=== PATIENT | female | born 1960 ===

== ENCOUNTER 2016-03-10 09:30 | Emergency (ER) | payer BC, MEDICAID ==
[2016-03-10 09:37] VITALS: BP 123/81; PULSE 68; RESP 20; TEMP 98.1
[2016-03-10 09:58] VITALS: O2SAT 98
--- NOTE | 2016-03-10 10:16 | ED PDOC ---
HPI: Neurologic - General Chief Complaint (Provider): vertigo Source: patient Exam Limitations: no limitations - History of Present Illness Timing/Duration: episodic, other (3 days) Episode Description: worse with sleeping/pressure on left side of head Associated Symptoms: ringing in ears. denies: fever/chills, nausea/vomiting, trouble walking, vision changes Additional Complaint(s): 56yo F with PMHx hyperlipidemia, hypothyroidism c/o vertigo x3 days. triggered by sleeping on left side of head, intermittent, improved immediately by changing position. a/w tinnitus x1 month. Denies fever, chills, Headache, chest pain, dyspnea. Denies falls, vision change. Has recent back surgery and using percocet/flexeril for back pain. <Muna Reyes - Last Filed: 03/10/16 11:06> <Riya Brown - Last Filed: 03/10/16 12:01> - General Time Seen by Provider: 03/10/16 09:47 Chief Complaint (Nursing): Dizziness/Lightheaded - History of Present Illness Allergies/Adverse Reactions: Allergies No Known Allergies Allergy (Verified 05/04/14 11:03) Home Medications: Ambulatory Orders Levothyroxine Sodium [Synthroid] 0.1 mg PO HS 05/04/14 Liothyronine [Cytomel] 5 mcg PO HS 05/04/14 Alprazolam [Xanax] 0.5 mg PO Q12 PRN #0 tab 05/05/14 Aspirin [Ecotrin] 325 mg PO DAILY #0 ect 05/05/14 Rosuvastatin Calcium [Crestor] 10 mg PO HS #0 tab 05/05/14 Supervising Attending Note - Supervising Attending Note The Documented history was done by the: Physician Abe Teacher, Attending Physician The documented physical exam was done by the: Physician Abe Teacher, Attending Physician The documented procedures were done by the: Physician Abe Teacher, Attending Physician - Attestation: I have personally seen and examined this patient.: Yes I have fully participated in the care of the patient.: Yes I have reviewed all pertinent clinical information, including history, physical exam and plan: Yes <Riya Brown - Last Filed: 03/10/16 12:01> Past Medical History Vital Signs: Last Vital Signs Temp 98.1 F 03/10/16 09:35 Pulse 68 03/10/16 09:35 Resp 20 03/10/16 09:35 BP 123/81 03/10/16 09:35 Pulse Ox 98 03/10/16 09:56 - Medical History PMH: Anxiety, Deep Vein Thrombosis (in ), Hypercholesterolemia (not taking meds currently.), Hyperthyroidism, Hypothyroidism Denies: HIV - Surgical History Surgical History: Back Surgery (L/S fusion) - Family History Family History: States: Unknown Family Hx <Muna Reyes - Last Filed: 03/10/16 11:06> Vital Signs: Last Vital Signs Temp 98.1 F 03/10/16 09:35 Pulse 68 03/10/16 09:35 Resp 20 03/10/16 09:35 BP 123/81 03/10/16 09:35 Pulse Ox 98 03/10/16 11:17 <Riya Brown - Last Filed: 03/10/16 12:01> - Home Medications Home Medications: Ambulatory Orders Medication Instructions Recorded Levothyroxine Sodium [Synthroid] 0.1 mg PO HS 05/04/14 Liothyronine [Cytomel] 5 mcg PO HS 05/04/14 Alprazolam [Xanax] 0.5 mg PO Q12 PRN #0 tab 05/05/14 Aspirin [Ecotrin] 325 mg PO DAILY #0 ect 05/05/14 Rosuvastatin Calcium [Crestor] 10 mg PO HS #0 tab 05/05/14 - Allergies Allergies/Adverse Reactions: Allergies Allergy/AdvReac Type Severity Reaction Status Date / Time No Known Allergies Allergy Verified 05/04/14 11:03 Review of Systems Constitutional: Negative for: Fever, Chills ENT: Positive for: Other (tinnitus) Cardiovascular: Negative for: Chest Pain Respiratory: Negative for: Shortness of Breath Gastrointestinal: Negative for: Nausea, Vomiting, Abdominal Pain, Diarrhea Musculoskeletal: Positive for: Back Pain (recent surgery) Neurological: Positive for: Other (vertigo) <Muna Reyes - Last Filed: 03/10/16 11:06> Physical Exam - Reviewed Vital Signs Reviewed: Yes (VSS) - Physical Exam Appears: Positive for: No Acute Distress Head Exam: Positive for: ATRAUMATIC Skin: Positive for: Warm, Dry Eye Exam: Positive for: Normal appearance, EOMI, PERRL ENT: Positive for: Other (Not able to perform Shea Halpike Maneuver d/t back pain ). 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 Negative for: Motor/Sensory Deficits, Facial Droop <Muna Reyes - Last Filed: 03/10/16 11:06> - Laboratory Results Result Diagrams: 03/10/16 10:00 03/10/16 10:00 - ECG ECG: Positive for: Interpreted By Me ECG Rhythm: Positive for: Sinus Rhythm O2 Sat by Pulse Oximetry: 98 - Progress Re-evaluation Time: 11:15 Condition: Improved <Muna Reyes - Last Filed: 03/10/16 11:06> - Laboratory Results Result Diagrams: 03/10/16 10:00 03/10/16 10:00 <Riya Brown A - Last Filed: 03/10/16 12:01> Medical Decision Making Medical Decision Making: DDx peripheral v central vertigo, tumor/schwanomma, Menierre's disease likely peripheral vertigo given symptoms/exam and a/w tinnitus CT head to r/o other causes meclizine PO reevaluation CT head no acute changes no further vertigo ambulating with no dizziness, lightheadedness d/c with Meclizine and ENT referral <Muna Reyes - Last Filed: 03/10/16 11:06> Disposition - Patient ED Disposition Is Patient to be Admitted: No - Disposition Disposition: Routine/Home Disposition Time: 11:16 <EricMuna - Last Filed: 03/10/16 11:06> - Patient ED Disposition Is Patient to be Admitted: No Doctor Will See Patient In The: Office Counseled Patient/Family Regarding: Studies Performed, Diagnosis, Need For Followup - Disposition Disposition: Routine/Home Disposition Time: 12:00 <Riya Brown A - Last Filed: 03/10/16 12:01> - Clinical Impression Clinical Impression: BPPV (benign paroxysmal positional vertigo) - Disposition Referrals: Scott Rose MD [Staff Provider] - Condition: STABLE Additional Instructions: ENT follow up if symptoms continue within 1week. Return for worsening. Avoid the position that provokes your symptoms. Instructions: Benign Paroxysmal Positional Vertigo (ED)
[2016-03-10 10:36] LABS: BASO # 0.1 K/uL (0.0-0.2); BASO % 1.3 % (0.0-2.0); EOS # 0.1 K/uL (0.0-0.7); EOS % 1.6 % (0.0-4.0); HEMATOCRIT 33.5 % (34.0-47.0); LYMPH # 2.3 K/uL (1.0-4.3); LYMPH % 31.3 % (20.0-40.0); MEAN CELL VOLUME 86.1 fl (81.0-99.0); MEAN CORPUSCULAR HEMOGLOBIN 28.5 pg (27.0-31.0); MEAN CORPUSCULAR HGB CONC 33.1 g/dL (33.0-37.0); MEAN PLATELET VOLUME 7.5 fl (7.2-11.7); MONO # 0.4 K/uL (0.0-0.8); MONO % 4.9 % (0.0-10.0); NEUT # 4.5 K/uL (1.8-7.0); NEUT % 60.9 % (50.0-75.0); RED CELL DISTRIBUTION WIDTH 14.2 % (11.5-14.5); WHITE BLOOD COUNT 7.3 K/uL (4.8-10.8)
--- NOTE | 2016-03-10 10:58 | CT ---
PROCEDURE: CT HEAD WITHOUT CONTRAST. HISTORY: vertigo COMPARISON: None available. TECHNIQUE: Axial computed tomography images were obtained through the head/brain without intravenous contrast. Radiation dose: Total exam DLP = 863.9 mGy-cm. FINDINGS: HEMORRHAGE: No intracranial hemorrhage. BRAIN: No mass effect or edema. No atrophy or chronic microvascular ischemic changes. VENTRICLES: Unremarkable. No hydrocephalus. CALVARIUM: Unremarkable. PARANASAL SINUSES: Unremarkable as visualized. No significant inflammatory changes. MASTOID AIR CELLS: Unremarkable as visualized. No inflammatory changes. OTHER FINDINGS: None. IMPRESSION: No evidence of acute intracranial hemorrhage territorial infarct mass effect or midline shift.
[2016-03-10 11:03] LABS: ALB/GLOB RATIO 1.1 (1.0-2.1); ALKALINE PHOSPHATASE 119 U/L (38-126); ALT/SGPT 26 U/L (9-52); AST/SGOT 37 U/L (14-36); BILIRUBIN,TOTAL 0.4 mg/dl (0.2-1.3); BLOOD UREA NITROGEN 20 mg/dl (7-17); CALCIUM 9.7 mg/dL (8.4-10.2); CARBON DIOXIDE 28 mmol/L (22-30); CHLORIDE 102 mmol/L (98-107); GFR AFRICAN-AMERICAN > 60; GLUCOSE,RANDOM 111 mg/dL (65-105); POTASSIUM 4.5 MMOL/L (3.6-5.0); SODIUM 142 mmol/l (132-148)
--- NOTE | 2016-03-10 16:19 | CARD ---
APPROVED REPORT EKG Measurement Heart [id number] <Conclusion> Normal sinus rhythm Low voltage QRS Borderline ECG
== END 2016-03-10 12:11 | disposition home or self-care (01) ==
LOC: H.ER 09:30
DX: H81.10 Benign paroxysmal vertigo, unspecified ear (principal); E03.9 Hypothyroidism, unspecified; E78.00 Pure hypercholesterolemia, unspecified; Z86.718 Personal history of other venous thrombosis and embolism

== ENCOUNTER 2016-08-23 15:51 | Emergency (ER) | payer MEDICAID ==
[2016-08-23 16:04] VITALS: TEMP 98.3
--- NOTE | 2016-08-23 17:10 | ED PDOC ---
HPI: Chest Pain Time Seen by Provider: 08/23/16 16:27 Chief Complaint (Nursing): Chest Pain Chief Complaint (Provider): Chest Pain History Per: Patient History/Exam Limitations: no limitations Onset/Duration Of Symptoms: Days (x3 weeks) Current Symptoms Are (Timing): Still Present Additional Complaint(s): Sonia Verduzco is a 56 year old female with previous medical history of arthritis, chronic back pain, and DVT, who presents to the emergency department with a complaint of on and off "sharp" chest pain associated with chest tightness, shortness of breath and heartburn ongoing for 3 weeks. Denied any fever, chills, cough, or leg swelling. Patient reported taking Motrin 800mg on a daily basis, Biotin and apple cider vinegar tablets for symptoms relief. PMD: Rosalva Santamaria MD Against Medical Advice - AMA Patient Left Against Medical Advice: The patient declines admission to the hospital and wishes to leave the Emergency Department. This action is against my medical advice. This decision was made with informed refusal. The patient was told that admission to the hospital is necessary. Explanation of the reasons why were discussed. The risks of leaving were explained to the patient and include, but are not limited to, worsening of known or currently unknown conditions, permanent disability and from undiagnosed or untreated conditions. The patient has the capacity to make this informed decision and understands my explanation of the current medical problem and risks of leaving. The patient voluntarily accepts these risks and signed an AMA form documenting our conversation. The patient was given the opportunity to ask questions and reconsider. The patient was encouraged to return to the Emergency Department at any time for further care. Past Medical History Reviewed: Historical Data, Nursing Documentation, Vital Signs Vital Signs: Last Vital Signs Temp 98.3 F 08/23/16 16:01 Pulse 72 08/23/16 22:31 Resp 20 08/23/16 21:27 BP 114/77 08/23/16 21:27 Pulse Ox 99 08/23/16 22:31 - Medical History PMH: Anxiety, Deep Vein Thrombosis (in s), Hypercholesterolemia (not taking meds currently.), Hyperthyroidism, Hypothyroidism Denies: HIV - Surgical History Surgical History: Back Surgery (L/S fusion) - Family History Family History: States: Unknown Family Hx - Social History Current smoker - smoking cessation education provided: No Alcohol: None Drugs: Denies - Home Medications Home Medications: Ambulatory Orders Medication Instructions Recorded Levothyroxine Sodium [Synthroid] 0.1 mg PO HS 05/04/14 Liothyronine [Cytomel] 5 mcg PO HS 05/04/14 Alprazolam [Xanax] 0.5 mg PO Q12 PRN #0 tab 05/05/14 Aspirin [Ecotrin] 325 mg PO DAILY #0 ect 05/05/14 Rosuvastatin Calcium [Crestor] 10 mg PO HS #0 tab 05/05/14 Meclizine [Meclizine*] 25 mg PO TID PRN #30 tab 03/10/16 - Allergies Allergies/Adverse Reactions: Allergies Allergy/AdvReac Type Severity Reaction Status Date / Time No Known Allergies Allergy Verified 05/04/14 11:03 NATHALIA Risk Score for UA/NSTEMI - ANTHALIA Risk Score Age > 64: NO 3 or more CAD Risk Factors: NO Known CAD (Stenosis greater than 50%): NO Aspirin use in past 7 days: NO Severe Angina: NO EKG ST changes greater than 0.5mm: NO Positive Cardiac Marker: NO NATHALIA Score: 0 Risk %: 5% Wells Criteria for PE - Wells Criteria for Pulmonary Embolism Clinical Signs and Symptoms of DVT: No P.E is #1 Diagnosis, or Equally Likely: No Heart Rate >100: No Immobilization at least 3 days;Surgery previous 4 weeks: No Previous, objectively diagnosed PE or DVT: Yes Hemoptysis: No Malignancy w/treatment within 6 months, or palliative: No Total Score: 1.5 Review of Systems ROS Statement: Except As Marked, All Systems Reviewed And Found Negative Constitutional: Negative for: Fever, Chills Cardiovascular: Positive for: Chest Pain ("sharp" and intermittent; associated with tightness) Respiratory: Positive for: Shortness of Breath. Negative for: Cough Gastrointestinal: Positive for: Other (heartburn) Musculoskeletal: Negative for: Other (pedal edema) Physical Exam - Reviewed Nursing Documentation Reviewed: Yes Vital Signs Reviewed: Yes - Physical Exam Appears: Positive for: Well, Non-toxic, No Acute Distress Head Exam: Positive for: ATRAUMATIC, NORMAL INSPECTION, NORMOCEPHALIC Skin: Positive for: Normal Color, Warm, DRY Cardiovascular/Chest: Positive for: Regular Rate, Rhythm Respiratory: Positive for: CNT, Normal Breath Sounds Gastrointestinal/Abdominal: Positive for: Normal Exam, Bowel Sounds, Soft. Negative for: Tenderness Back: Positive for: Normal Inspection. 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 Negative for: ST/T Changes Rate: 72 O2 Sat by Pulse Oximetry: 99 (RA) Pulse Ox Interpretation: Normal - Radiology X-Ray: Viewed By Me, Read By Radiologist X-Ray Interpretation: No Acute Disease Medical Decision Making Medical Decision Making: Initial Impression: Chest pain Differential Diagnosis: Acute coronary syndrome; pulmonary embolism Initial Plan: * EKG * Labs * Troponin I * D. Dimer * CXR * textile engineer * Re-evaluation * * EXAM: CT Angiography Chest With Intravenous Contrast CLINICAL HISTORY: 56 years old, female; Pain; Chest pain; Type not specified TECHNIQUE: Axial computed tomographic angiography images of the chest with intravenous contrast using pulmonary embolism protocol. This CT exam was performed using one or more of the following dose reduction techniques: automated exposure control, adjustment of the mA and/or kV according to patient size, and/or use of iterative reconstruction technique. MIP reconstructed images were created and reviewed. Coronal and sagittal reformatted images were created and reviewed. CONTRAST: 85 mL of [id number] administered intravenously. COMPARISON: No relevant prior studies available. FINDINGS: Pulmonary arteries: No pulmonary embolism. Aorta: Minimal atherosclerotic disease. No aneurysm. Lungs: Mild underinflation. Mild mosaic pattern of lung parenchyma, nonspecific. No consolidation. Pleural space: No significant effusion. No pneumothorax. Heart: Mild cardiomegaly. No significant pericardial effusion. Bones/joints: No acute fracture. No dislocation. Soft tissues: Unremarkable. Lymph nodes: No pathologically enlarged lymph nodes. IMPRESSION: 1. No CT evidence of pulmonary embolism. 2. Incidental/non-acute findings are described above. Thank you for allowing us to participate in the care of your patient. Dictated and Authenticated by: Arsenio Naoples MD 08/23/2016 10:25 PM Eastern Time ([place] & Prakash ~ Scribe Attestation: Documented by Brianna Uriarte, acting as a scribe for Riya Klein MD. Provider Scribe Attestation: All medical record entries made by the Scribe were at my direction and personally dictated by me. I have reviewed the chart and agree that the record accurately reflects my personal performance of the history, physical exam, medical decision making, and the department course for this patient. I have also personally directed, reviewed, and agree with the discharge instructions and disposition. Disposition - Clinical Impression Clinical Impression: Chest pain, Left against medical advice - Patient ED Disposition Is Patient to be Admitted: No Doctor Will See Patient In The: Office Counseled Patient/Family Regarding: Studies Performed, Diagnosis, Need For Followup - Disposition Referrals: Rosalva Santamaria MD [Family Provider] - Disposition: Against Medical Advice Disposition Time: 22:38 Condition: GOOD Additional Instructions: You are leaving against medical advice for observation for cardiac monitoring. Return for worsening. Follow up with your PCP tomorrow. Instructions: Chest Pain (ED)
[2016-08-23 17:13] LABS: BASO # 0.1 K/uL (0.0-0.2); BASO % 0.7 % (0.0-2.0); EOS # 0.1 K/uL (0.0-0.7); EOS % 1.6 % (0.0-4.0); HEMOGLOBIN 12.3 g/dL (12.0-16.0); LYMPH # 3.4 K/uL (1.0-4.3); LYMPH % 40.3 % (20.0-40.0); MEAN CELL VOLUME 85.6 fl (81.0-99.0); MEAN CORPUSCULAR HEMOGLOBIN 28.3 pg (27.0-31.0); MEAN PLATELET VOLUME 8.5 fl (7.2-11.7); MONO # 0.5 K/uL (0.0-0.8); MONO % 5.9 % (0.0-10.0); NEUT # 4.3 K/uL (1.8-7.0); NEUT % 51.5 % (50.0-75.0); RBC 4.34 Mil/uL (3.80-5.20); RED CELL DISTRIBUTION WIDTH 15.6 % (11.5-14.5); WHITE BLOOD COUNT 8.3 K/uL (4.8-10.8)
[2016-08-23 17:21] LABS: BLOOD UREA NITROGEN 20 mg/dl (7-17); CALCIUM 9.7 mg/dL (8.4-10.2); GFR AFRICAN-AMERICAN > 60; GFR NON-AFRICAN AMERICAN > 60
--- NOTE | 2016-08-23 17:40 | RAD ---
HISTORY: chest pain COMPARISON: 05/05/2014. TECHNIQUE: Chest PA and lateral FINDINGS: LUNGS: No active pulmonary disease. PLEURA: No significant pleural effusion identified. No pneumothorax apparent. CARDIOVASCULAR: No radiographic findings to suggest acute or significant cardiovascular disease. OSSEOUS STRUCTURES: No significant abnormalities. VISUALIZED UPPER ABDOMEN: Normal. OTHER FINDINGS: None. IMPRESSION: No active disease. No significant interval change compared to the prior examination(s).
[2016-08-23] MEDS ORDERED: Sodium Chloride 0.9% 50 ML IV ONE (19:03)
[2016-08-23] MEDS ORDERED: Iodixanol 320 MG/ML 100 ML BOTTLE IV ONE (19:03)
[2016-08-23 21:29] VITALS: BP 114/77; PULSE 72; RESP 20
--- NOTE | 2016-08-23 22:25 | CT ---
EXAM: CT Angiography Chest With Intravenous Contrast CLINICAL HISTORY: 56 years old, female; Pain; Chest pain; Type not specified TECHNIQUE: Axial computed tomographic angiography images of the chest with intravenous contrast using pulmonary embolism protocol. This CT exam was performed using one or more of the following dose reduction techniques: automated exposure control, adjustment of the mA and/or kV according to patient size, and/or use of iterative reconstruction technique. MIP reconstructed images were created and reviewed. Coronal and sagittal reformatted images were created and reviewed. CONTRAST: 85 mL of [id number] administered intravenously. COMPARISON: No relevant prior studies available. FINDINGS: Pulmonary arteries: No pulmonary embolism. Aorta: Minimal atherosclerotic disease. No aneurysm. Lungs: Mild underinflation. Mild mosaic pattern of lung parenchyma, nonspecific. No consolidation. Pleural space: No significant effusion. No pneumothorax. Heart: Mild cardiomegaly. No significant pericardial effusion. Bones/joints: No acute fracture. No dislocation. Soft tissues: Unremarkable. Lymph nodes: No pathologically enlarged lymph nodes. IMPRESSION: 1. No CT evidence of pulmonary embolism. 2. Incidental/non-acute findings are described above.
[2016-08-23 22:31] VITALS: O2SAT 99
--- NOTE | 2016-08-25 00:04 | CARD ---
APPROVED REPORT EKG Measurement Heart [id number] <Conclusion> Normal sinus rhythm Low voltage QRS Borderline ECG
== END 2016-08-23 23:02 | disposition left against medical advice (07) ==
LOC: H.ER 15:51
DX: R07.9 Chest pain, unspecified (principal); Z86.718 Personal history of other venous thrombosis and embolism

== ENCOUNTER 2017-08-26 23:33 | Emergency (ER) | payer MEDICAID ==
[2017-08-27] MEDS ORDERED: Oxycodone/Acetaminophen 5/325 mg Tab PO STA (00:29)
[2017-08-27] MEDS ORDERED: Oxycodone/Acetaminophen 5/325 mg Tab ONE (00:47)
--- NOTE | 2017-08-27 02:08 | ED PDOC ---
HPI: Back Time Seen by Provider: 08/27/17 00:28 Chief Complaint (Nursing): Back Pain Chief Complaint (Provider): Chronic Back Pain History Per: Patient History/Exam Limitations: no limitations Onset/Duration Of Symptoms: Days (>365) Current Symptoms Are (Timing): Still Present Quality Of Discomfort: Sharp, Aching, "Pain" Exacerbating Factor(s): Turning, Movement, Sitting Past Medical History Reviewed: Historical Data, Nursing Documentation, Vital Signs Vital Signs: Last Vital Signs Temp 97.5 F L 08/26/17 23:37 Pulse 64 08/26/17 23:37 Resp 16 08/26/17 23:37 BP 144/82 08/26/17 23:37 Pulse Ox 97 08/26/17 23:37 - Medical History PMH: Anxiety, Deep Vein Thrombosis (in ), Hypercholesterolemia (not taking meds currently.), Hyperthyroidism, Hypothyroidism Denies: HIV - Surgical History Surgical History: Back Surgery (L/S fusion) - Family History Family History: States: Unknown Family Hx - Home Medications Home Medications: Ambulatory Orders Medication Instructions Recorded Levothyroxine Sodium [Synthroid] 0.1 mg PO HS 05/04/14 Liothyronine [Cytomel] 5 mcg PO HS 05/04/14 Alprazolam [Xanax] 0.5 mg PO Q12 PRN #0 tab 05/05/14 Aspirin [Ecotrin] 325 mg PO DAILY #0 ect 05/05/14 Rosuvastatin Calcium [Crestor] 10 mg PO HS #0 tab 05/05/14 Meclizine [Meclizine*] 25 mg PO TID PRN #30 tab 03/10/16 - Allergies Allergies/Adverse Reactions: Allergies Allergy/AdvReac Type Severity Reaction Status Date / Time hydromorphone [From Dilaudid] Allergy SHORTNESS Verified 08/26/17 23:36 OF BREATH Review of Systems ROS Statement: Except As Marked, All Systems Reviewed And Found Negative Musculoskeletal: Positive for: Back Pain Physical Exam - Reviewed Nursing Documentation Reviewed: Yes Vital Signs Reviewed: Yes - Physical Exam Appears: Positive for: Uncomfortable, In Acute Distress Head Exam: Positive for: ATRAUMATIC, NORMAL INSPECTION Skin: Positive for: Normal Color, Warm, Dry Neck: Positive for: Normal, Painless ROM, Supple. Negative for: Decreased ROM Cardiovascular/Chest: Positive for: Regular Rate, Rhythm Respiratory: Positive for: Normal Breath Sounds. Negative for: Decreased Breath Sounds, Rales, Rhonchi, Stridor, Wheezing, Respiratory Distress Pulses-Carotid (L): 2+ Pulses-Carotid (R): 2+ Pulses-Radial (L): 2+ Pulses-Radial (R): 2+ Back: Positive for: Vertebral Tenderness, Decreased ROM, Muscle Spasm. Negative for: L CVA Tenderness, R CVA Tenderness Extremity: Positive for: Normal ROM. Negative for: Tenderness - ECG O2 Sat by Pulse Oximetry: 97 Medical Decision Making Medical Decision Making: Pt has 30mg oxycodone and xanax at home for back pain tx but pt refuses to take medication as she doesnt like to take meds she has been advised by her orthopedic surgeon to seek pain management I provided pt with 60mg toradol and a 5/325mg percocet Pt will consult with her orthopedic surgeon in am Disposition - Clinical Impression Clinical Impression: Chronic back pain - Patient ED Disposition Is Patient to be Admitted: No Doctor Will See Patient In The: Office Counseled Patient/Family Regarding: Diagnosis, Need For Followup - Disposition Referrals: Norma Goel MD [Staff Provider] - Disposition: Routine/Home Disposition Time: 02:09 Condition: STABLE Instructions: Chronic Pain (DC)
[2017-08-27 02:39] VITALS: BP 128/78; PULSE 72; RESP 18; TEMP 98.2; O2SAT 99
== END 2017-08-27 02:10 | disposition home or self-care (01) ==
LOC: H.ER 23:33
DX: M54.9 Dorsalgia, unspecified (principal); E03.9 Hypothyroidism, unspecified; E05.90 Thyrotoxicosis, unspecified without thyrotoxic crisis or storm; E78.00 Pure hypercholesterolemia, unspecified; G89.29 Other chronic pain; Z86.718 Personal history of other venous thrombosis and embolism
CPT/HCPCS: 96372; 99283; J1885

== ENCOUNTER 2017-10-21 09:54 | Day surgery (SDC) | payer MEDICAID ==
[2017-10-12 09:09] VITALS: BMI 33.5
[2017-10-21] MEDS ORDERED: Iohexol 300 10 ML ONE (12:22)
[2017-10-21] MEDS ORDERED: MethylPREDNISolone Depo 40 mg/ml Inj ONE (12:22)
[2017-10-21 12:23] VITALS: RESP 18
[2017-10-21] MEDS ORDERED: methylPREDNISolone Depo 80 mg/ml Inj IM ONE (12:35)
[2017-10-21] MEDS ORDERED: Lidocaine 2% PF (10 ml) Amp INJ ONE (12:35)
[2017-10-21] MEDS ORDERED: Iohexol 300 10 ML IJ ONE (12:35)
[2017-10-21] MEDS ORDERED: Bupivacaine 0.5% Inj(30mL) IJ ONE (12:35)
[2017-10-21 13:11] VITALS: O2SAT 99
--- NOTE | 2017-10-21 14:09 | RAD ---
Date of service: 10/21/2017 PROCEDURE: Intraoperative Fluoroscopy. HISTORY: PAIN MANAGEMENT FINDINGS: Fluoroscopic assistance was provided for pain management. Please refer to the operative report from MARK Parra. Total fluoroscopic time (continuous mode) utilized during the procedure 25.0 (seconds).
[2017-10-21 14:42] VITALS: BP 111/72; PULSE 72; TEMP 97.6
--- NOTE | 2017-10-22 02:20 | OP ---
PROCEDURE DATE: 10/21/2017 PREOPERATIVE DIAGNOSIS: Right sacroiliitis. POSTOPERATIVE DIAGNOSIS: Right sacroiliitis. PROCEDURE: Right sacroiliac joint steroid injection. ANESTHESIOLOGIST: Mahamed Larsen MD SURGEON: Mireya Villa MD TYPE OF ANESTHESIA: Monitored anesthesia care. COMPLICATIONS: None. SPECIMEN: None. DESCRIPTION OF PROCEDURE: Procedure is as follows. After we had a discussion of the procedure with the patient including its risks, benefits, alternatives, outcome data, possibility of no effect or increased pain, the patient consented to the procedure. She denies any recent infection, bleeding tendencies, or being on anticoagulants. A decision was then made to proceed to the OR. The patient was placed on the fluoroscopy table in a prone position with two pillows underneath her abdomen. The back was prepped and draped in the usual sterile fashion. A sterile technique was adhered to during the entire procedure. The right sacroiliac joint was visualized on the anteroposterior view. The patient is status post bilateral sacroiliac joint fusion. Care was taken not to contact the hardware with the injection needle. The target was at the inferior pole of the right sacroiliac joint. The skin overlying this area was then infiltrated with 1% lidocaine using 25-gauge needle. Subsequently, a 22-gauge 3-1/2-inch spinal needle was then incrementally advanced under fluoroscopic guidance until the tip of the needle walked into the joint capsule. This was confirmed by injecting approximately 1 mL Isovue contrast which was seen spreading up the right sacroiliac joint towards the top of the joint. After appropriate placement of the needle, approximately 4 mL of 0.25% Marcaine and Depo-Medrol mixture was injected. The needle was then removed. Then, the L5 paramedian nerve was also anesthetized by placing a 22-gauge 3-1/2-inch needle at the sacral ala. Total of 4 mL of Marcaine and Depo-Medrol mixture was used for this injection. At the end of the case, the patient's back was cleaned, and dry bandages were applied. The patient was then transferred to the recovery area in good condition without any signs of DEVULCANIZER CHARGER toxicity or any neurological deficit. She will be following in the office in approximately two to four weeks. En-Jarocho Villa MD [facility] # [id number]
== END 2017-10-21 14:00 | disposition home or self-care (01) ==
LOC: H.OPSURG 09:54
PROVIDERS: ATTEND Anesthesiology
DX: M46.1 Sacroiliitis, not elsewhere classified (principal); M19.90 Unspecified osteoarthritis, unspecified site; E78.5 Hyperlipidemia, unspecified; E03.9 Hypothyroidism, unspecified; M54.5 Low back pain
CPT/HCPCS: 27096; J1030; J1040; Q9967